=== PATIENT | female | born 1990 | race Caucasian/White ===

== ENCOUNTER 2018-05-18 21:22 | Emergency (ER) | payer MEDICAID ==
[2018-05-18] MEDS ORDERED: PREDNISONE 20 MG TAB PO ONE (21:42)
--- NOTE | 2018-05-18 21:42 | Emergency Department Record ---
History of Present Illness - General Chief complaint: Rash Stated complaint: RASH ALL OVER BODY Time Seen by Provider: 05/18/18 21:33 Source: Patient Mode of Arrival: Ambulatory Limitations: No limitations - History of Present Illness Initial comments: 27 yo female presents with a rash that comes and goes. It has been occurring over the last 3 days. No new food, medications, or exposures. No cough or shortness of breath. She was seen in the [facility] today for a yeast infection. The rash started prior to starting Diflucan. The rash itches. MD complaint: Rash -: Days(s) (3) Location: Generalized Severity: Mild Consistency: Intermittent Improves with: None Worsens with: None Context: None Associated symptoms: Denies other symptoms Treatments Prior to Arrival: None - Related Data Previous Rx's Medication Instructions Recorded Cetirizine HCl [Zyrtec] 10 mg PO DAILY #14 cap 05/18/18 Prednisone [Prednisone 20Mg] 20 mg PO DAILY #5 tab 05/18/18 Allergies Allergy/AdvReac Type Severity Reaction Status Date / Time No Known Drug Allergies Allergy Verified 05/18/18 21:27 Review of Systems Constitutional: Denies: Chills, Fever, Malaise, Weakness Eyes: Denies: Eye discharge ENT: Denies: Congestion, Throat pain Respiratory: Denies: Cough, Dyspnea Cardiovascular: Denies: Chest pain, Syncope Endocrine: Denies: Fatigue Gastrointestinal: Denies: Abdominal pain, Diarrhea, Nausea, Vomiting Genitourinary: Denies: Dysuria, Urgency Skin: Reports: Change in color, Rash. Denies: Bruising Neurological: Denies: Headache, Numbness, Weakness Psychiatric: Denies: Anxiety Hematological/Lymphatic: Denies: Easy bleeding, Easy bruising Physical Exam - General General Appearance: Alert, Oriented x3, Cooperative, No acute distress Limitations: No limitations - Head Head exam: Normal inspection - Eye Eye exam: Normal appearance. negative: Conjunctival injection, Scleral icterus - ENT ENT exam: Normal exam, Mucous membranes moist Ear exam: Normal external inspection Nasal Exam: Normal inspection Mouth exam: Normal external inspection - Neck Neck exam: Normal inspection - Respiratory Respiratory exam: Normal lung sounds bilaterally. negative: Respiratory distress - Cardiovascular Cardiovascular Exam: Regular rate, Normal rhythm, Normal heart sounds - Rectal Rectal exam: Deferred - exam: Deferred - Extremities Extremities exam: negative: Normal inspection - Back Back exam: Denies: Normal inspection - Neurological Neurological exam: Alert, Oriented X3 - Psychiatric Psychiatric exam: Normal affect, Normal mood - Skin Skin exam: Dry, Intact, Normal color, Urticaria, Warm Distribution of rash: Back, Chest, RUE, LUE Course Vital Signs 05/18/18 21:27 Temperature 98.4 F Pulse Rate [ 68 Pulse Ox Probe] Respiratory 20 Rate Blood Pressure 150/93 [Left Arm] Pulse Ox 98 - Reevaluation(s) Reevaluation #1: 05/18/18 21:45 Rash is consistent with urticaria. Disposition Disposition: Discharge Clinical Impression: Rash, Acute urticaria Disposition: Home, Self-Care Condition: (1) Good Instructions: Urticaria (ED) Additional Instructions: Take the medication as directed Return if worse, cough, short of breath or any new concerns Follow up with your doctor for a recheck If this is recurrent then you may need to see an roll up operator as well. Prescriptions: Cetirizine HCl [Zyrtec] 10 mg PO DAILY #14 cap Prednisone [Prednisone 20Mg] 20 mg PO DAILY #5 tab Forms: Patient Portal Access Time of Disposition: 21:45 Quality - Quality Measures Quality Measures: N/A - Blood Pressure Screening Does Patient Have Any of the Following: No Blood Pressure Classification: Hypertensive Reading Systolic Measurement: 150 Diastolic Measurement: 93 Screening for High Blood Pressure: < Pre-Hypertensive BP, F/U Documented > [ [id number]] Pre-Hypertensive Follow-up Interventions: Referral to alternative/primary care provider.
[2018-05-18] MEDS ORDERED: DIPHENHYDRAMINE HCL 25 MG CAPSULE PO ONE (21:43)
== END 2018-05-18 21:58 | disposition home or self-care (01) ==
LOC: ER 21:22
DX: L50.8 Other urticaria (principal)
CPT/HCPCS: 99282; J7512